=== PATIENT | male | born 1940 | race Caucasian/White ===

== ENCOUNTER 2023-05-11 22:11 | Emergency (ER) | payer OTHER ==
[~2023-05-11] VITALS: Ht 177.8 cm; Wt 72.6 kg
[2023-05-11 22:26] VITALS: BP 110/68; PULSE 92; RESP 16; TEMP 98.6; O2SAT 98
[2023-05-12 01:26] LABS: BASOPHILS # (AUTO) 0.1 K/uL (0.00-0.22); BASOPHILS % (AUTO) 0.7 % (0.0-2.0); EOSINOPHILS # (AUTO) 0.2 K/uL (0-0.4); EOSINOPHILS % (AUTO) 1.8 % (0.0-4.0); HEMATOCRIT 27.7 % (36-52); HEMOGLOBIN 9.1 g/dL (12.0-18.0); LYMPHOCYTES # (AUTO) 1.3 K/uL (2.0-11.5); LYMPHOCYTES % (AUTO) 10.1 % (20.5-51.1); MEAN CORPUSCULAR HEMOGLOBIN 31 pg (27-31); MEAN CORPUSCULAR HGB CONC 33 g/dL (33-37); MEAN CORPUSCULAR VOLUME 93.6 fL (80-94); MONOCYTES # (AUTO) 1.3 K/uL (0.8-1.0); MONOCYTES % (AUTO) 9.5 % (1.7-9.3); NEUTROPHILS # (AUTO) 10.4 K/uL (1.8-7.7); NEUTROPHILS % (AUTO) 77.9 % (42.2-75.2); PLATELET COUNT (AUTO) 431 K/uL (140-450); RED BLOOD CELL COUNT(AUTO) 2.96 MIL/uL (4.20-6.10); RED CELL DISTRIBUTION WIDTH 15.3 % (11.6-13.7); WHITE BLOOD COUNT (AUTO) 13.4 K/uL (4.8-10.8)
[2023-05-12 01:40] LABS: ANION GAP 10.4 (8-16); CALCIUM 8.8 mg/dL (8.5-10.1); CARBON DIOXIDE 28.8 mmol/L (21-32); CHLORIDE 100 mmol/L (98-107); CREATININE 0.7 mg/dL (0.6-1.3); GLUCOSE 100 mg/dL (74-106); POTASSIUM 4.2 mmol/L (3.5-5.1); SODIUM SERUM 135 mmol/L (136-145); UREA NITROGEN, BLOOD 23 mg/dL (7-18)
[2023-05-12 01:45] LABS: BILIRUBIN,URINE NEGATIVE (NEGATIVE); BLOOD, URINE 2+ (NEGATIVE); LEUKOCYTE ESTERASE ,URINE NEGATIVE (NEGATIVE); NITRITE, URINE NEGATIVE (NEGATIVE); PROTEIN,URINE 3+ (NEGATIVE); UGLUCOSE NEGATIVE (NEGATIVE); UROBILINOGEN,URINE 0.2 EU/dL (0.2 - 1)
[2023-05-12 01:47] LABS: APPEARANCE,URINE BLOODY (CLEAR); BACTERIA,URINE OCCASSIONAL /HPF (None Seen); COLOR,URINE BLOODY (YELLOW); SQUAMOUS EPITHELIAL CELL,UR 0-3 (FEW) /LPF (0-3 (FEW)); WBC,URINE 0-5 /HPF (0-5)
[2023-05-12 01:48] LABS: RBC,URINE TOO NUMEROUS TO COUN /HPF (0-5)
[2023-05-12] MEDS ORDERED: MULT-2253 PO (02:15)
[2023-05-12] MEDS ORDERED: SYN.05 PO (02:15)
[2023-05-12] MEDS ORDERED: CARV6.25 PO (02:15)
[2023-05-12] MEDS ORDERED: TUBE5SOL28 TD (02:15)
[2023-05-12] MEDS ORDERED: BISA-218 RC (02:15)
[2023-05-12] MEDS ORDERED: ACET-2619 PO (02:15)
[2023-05-12] MEDS ORDERED: METF-346 PO (02:15)
[2023-05-12] MEDS ORDERED: MAGN400S60 PO (02:15)
[2023-05-12] MEDS ORDERED: FERR325E14 PO (02:15)
[2023-05-12] MEDS ORDERED: D50SYR IV (02:15)
[2023-05-12] MEDS ORDERED: GABA300S3 PO (02:15)
[2023-05-12] MEDS ORDERED: MIRABULK PO (02:15)
[2023-05-12] MEDS ORDERED: DOCU-299 PO (02:15)
[2023-05-12] MEDS ORDERED: LISI-486 PO (02:15)
[2023-05-12] MEDS ORDERED: KEFSUS PO (02:15)
[2023-05-12] MEDS ORDERED: ONDA4SOL8 PO (02:15)
[2023-05-12] MEDS ORDERED: GLUC1VIA (02:15)
[2023-05-12] MEDS ORDERED: AMLO5TAB PO (02:15)
[2023-05-12] MEDS ORDERED: ASCO500T95 PO (02:15)
[2023-05-12 13:54] VITALS: BP 128/56; PULSE 72; RESP 18; TEMP 98; O2SAT 82
== END 2023-05-12 09:35 | disposition home or self-care (01) ==
LOC: MED 22:11
DX: S37.39XA Other injury of urethra, initial encounter (principal); R31.9 Hematuria, unspecified; X58.XXXA Exposure to other specified factors, initial encounter; Y93.89 Activity, other specified; Y92.89 Other specified places as the place of occurrence of the external cause; Y99.8 Other external cause status
CPT/HCPCS: 36415; 51702; 80048; 81001; 85025; 99283